=== PATIENT | male | born 1975 | race Caucasian/White ===

== ENCOUNTER 2018-03-05 11:10 | Emergency (ER) | payer OTHER ==
[2018-03-05] MEDS: HYDROmorphONE 1 MG/5 ML IV SYRINGE IV (12:52)
[2018-03-05] MEDS: ONDANSETRON 4 MG INJ IV (12:52)
[2018-03-05 13:01] LABS: ADD MAN DIFF? NO
[2018-03-05 13:02] LABS: BASOPHIL # 0.1 10^3/ul (0.0-0.1); BASOPHILS % 0.7 % (0.0-2.0); EOSINOPHILS # 0.1 10^3/ul (0.0-0.5); HEMATOCRIT 47.5 % (42.0-52.0); HEMOGLOBIN 16.5 g/dl (14.0-18.0); LYMPHOCYTES # 1.7 10^3/ul (0.8-2.9); LYMPHOCYTES % 21.7 % (15.0-51.0); MEAN CORPUSCULAR HGB CONC 34.7 g/dl (32.0-37.0); MEAN CORPUSCULAR VOLUME 89.3 fl (82.0-101.0); MEAN PLATELET VOLUME 10.4 fl (7.4-10.4); MONOCYTE # 0.7 10^3/ul (0.3-0.9); MONOCYTES % 8.7 % (0.0-11.0); NEUTROPHIL # 5.4 10^3/ul (1.6-7.5); NEUTROPHILS % 67.7 % (39.0-77.0); PLATELET COUNT 280 10^3/UL (140-415); RED BLOOD COUNT 5.32 10^6/ul (4.70-6.10); RED CELL DISTRIBUTION WIDTH 12.4 % (11.5-14.5)
[2018-03-05] MEDS: SOD CHLORIDE 0.9% 500 ML IV (13:02)
[2018-03-05] MEDS: LORAZEPAM 2 MG INJ IV (13:02)
[2018-03-05 13:31] LABS: ANION GAP 19 (8-16); BLOOD UREA NITROGEN 14 mg/dl (7-20); CALCIUM 9.8 mg/dl (8.4-10.2); CARBON DIOXIDE 23 mmol/L (21-31); CHLORIDE 106 mmol/L (97-110); CREATININE 0.74 mg/dl (0.61-1.24); GLUCOSE 107 mg/dl (70-220); POTASSIUM 4.2 mmol/L (3.5-5.1); SODIUM 144 mmol/L (135-144)
[2018-03-05 13:37] LABS: INR 0.87; PARTIAL THROMBOPLASTIN TIME 34.5 Sec (25.0-35.0); PROTIME 11.9 Sec (11.9-14.9); PT RATIO 0.9
[2018-03-05 13:44] LABS: TROPONIN-I < 0.012 ng/ml (0.00-0.12)
[2018-03-05] MEDS: SOD CHLORIDE 0.9% 100 ML (13:59)
[2018-03-05] MEDS: IOHEXOL 100 ML (13:59)
[2018-03-05] MEDS: IOHEXOL 350MG/ML 50 ML BTL (14:00)
[2018-03-05] MEDS: IBUPROFEN 800 MG TAB PO (16:34)
[2018-03-05] MEDS: NITROGLYCERIN 2% 1 GM OINT PKT TD (16:40)
[2018-03-05] MEDS: ASPIRIN 81 MG TAB PO (16:40)
== END 2018-03-05 16:50 | disposition home or self-care (01) ==
LOC: E/R 11:10
DX: R07.9 Chest pain, unspecified (principal); R53.1 Weakness; R51 Headache; Z87.891 Personal history of nicotine dependence
CPT/HCPCS: 36415; 70450; 71275; 80048; 84484; 85025; 85610; 85730; 93005; 96374; 99285-25